=== PATIENT | male | born 1960 | race Caucasian/White ===

== ENCOUNTER 2016-04-05 21:05 | Emergency (ER) | payer OTHER ==
--- NOTE | 2016-04-05 21:51 | DIAGNOSTIC IMAGING REPORT ---
PROCEDURE: XR WRIST MIN 3 VIEWS - RIGHT INDICATION: CELLULITIS TECHNIQUE: Four views. COMPARISON: None. FINDINGS: There are faint dystrophic calcifications in the soft tissues surrounding the right wrist with probable chondrocalcinosis. Osseous structures and joint spaces are normal. No evidence of fracture. If an occult scaphoid fracture suspected clinically, follow-up examination) 14 days may be of assistance. IMPRESSION: 1. Faint dystrophic calcifications surrounding the right wrist with probable chondrocalcinosis. Consider calcium pyrophosphate deposition disease (e.g., pseudogout). Gout arthropathy might also be considered. 2. Otherwise negative right wrist.
--- NOTE | 2016-04-05 23:30 | ED NURSING NOTES ---
Clinical Report - Nurses [facility] [place] [address] 04/05/2016 21:08 Patient: RALPH SMITH TRIAGE Triage time 2115. Acuity: LEVEL 4. Chief Complaint: RIGHT UPPER EXTREMITY PAIN, SWELLING and REDNESS. Alert. --21:22 Nicole Farnsworth 21:18 04/05/16. BP: 163/89. HR: 105. RR: 18. O2 saturation: 98%. Temp: 99.2 F. Pain level now 8/10. --21:22 Nicole Farnsworth. Weight: 72.5 kg. Height/Length: 66 inches. BMI: 25.8. --21:17 Nicole Farnsworth. Medications Allopurinol Oral. --21:19 Nicole Farnsworth Colchicine Oral. --21:21 Nicole Farnsworth. Allergies No Known Drug Allergy. --21:19 Nicole Farnsworth. History Arrived by private vehicle. Historian: patient. Accompanied by family. An injury may have occurred. This occurred yesterday. 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 SOCIAL HX: Occasional alcohol use. --21:22 Nicole Farnsworth. PROBLEMS: Gout. Gout. --21:21 Nicole Farnsworth. Interventions To treatment room. --21:22 Nicole Farnsworth. PHYSICAL ASSESSMENT Ambulatory to room. GENERAL / NEURO / PSYCH: Appears in pain and in distress. EXTREMITIES: Limited ROM present. Right hand: tenderness, swelling and erythema. SKIN: Skin intact. Skin is warm and dry. --21:23 Nicole Farnsworth. NURSING PROGRESS NOTES 21:40 04/05/2016 Site #1 started via IV in the left antecubital space with an 20g angiocath, with aseptic technique and good blood return; one attempt. Blood drawn: rainbow set and cultures x1. Labeled in the presence of the patient and sent to the lab. Saline lock flushed with 10 mL saline. --21:40 Nicole Farnsworth 21:41 04/05/2016 Toradol IVP 30 mg given. via site #1. Allergies verified and confirmed 5 rights. IV patency established. IV site checked: no pain, redness, or swelling. IV flushed thoroughly pre- and post-medication administration. IVP given by RN. --21:41 Nicole Farnsworth 21:41 04/05/2016 Started bag #1 1000 mL IV Fluids IV NS (Saline); bolus of 1000 mL wide open via site #1. Allergies verified and confirmed 5 rights. IV patency established. IV site checked: no pain, redness, or swelling. IV flushed thoroughly pre- and post-medication administration. --21:41 Nicole Farnsworth 23:40 04/05/2016 Started 900 mg of Clindamycin IVPB in bag #1 50 mL; at 100 mL/hr over 30 minute(s) via site #1; Allergies verified and confirmed 5 rights. IV patency established. IV site checked: no pain, redness, or swelling. IV flushed thoroughly pre- and post-medication administration. --23:40 Nicole Farnsworth 00:14 04/06/2016 IV Fluids IV NS Discontinued: bag #1 infused upon discharge. Total amount infused: 1000 mL. IV patency established. IV site checked: no pain, redness, or swelling. IV flushed thoroughly. --00:14 Nicole Farnsworth 00:15 04/06/2016 Clindamycin IVPB Discontinued: bag #1 infused upon discharge. Total amount infused: 50 mL. IV patency established. IV site checked: no pain, redness, or swelling. IV flushed thoroughly. --00:15 Nicole Farnsworth Reassessment after medication administered. He is calm and resting quietly and has had no adverse reaction. Overall patient status is improved- he states feels better. --00:15 Nicole Farnsworth. DISPOSITION / DISCHARGE Departure time: 9. Condition at departure: improved and stable. No learning barriers present. Discharge instructions provided and reviewed with the patient. Reviewed medication(s). Patient verbalized understanding. Written instructions provided in Swedish. The patient was discharged by the physician assistant professor of physics. He was discharged home and accompanied by family. He left the Emergency Department ambulatory and via private vehicle. Family member driving. --00:16 Nicole Farnsworth 00:15 04/06/16. BP: 158/72. HR: 88. RR: 16. O2 saturation: 98%. Pain level now 06/22. --00:16 Nicole Farnsworth. Locked/Released at 04/06/2016 0:17 by Nicole Farnsworth,
--- NOTE | 2016-04-05 23:30 | ED ORDER SUMMARY ---
..... Patient: RALPH SMITH OrderSheet [facility] VisitID: [id number] [place] [address] 55y, M Registration Date/Time: 04/05/2016 ORDER SHEET Weight: 72.5 kg Allergies: No Known Drug Allergy GENERAL ORDERS: Hand 3 or 4V Right Urgent (:04/05/2016 EKoroleva P.A.-C) (Ack 21:25 [facility] Medical Staff Director) Blood Culture (No) (N/A) Urgent (:04/05/2016 EKoroleva P.A.-C) (Ack 21:25 [facility] Medical Staff Director) Wrist 3 or 4V Right Urgent (:04/05/2016 EKoroleva P.A.-C) (Ack 21:25 [facility] Medical Staff Director) (21:31 Berry) CBC w Diff Urgent (:04/05/2016 EKoroleva P.A.-C) (Ack 21:25 [facility] Medical Staff Director) BMP Urgent (:04/05/2016 EKoroleva P.A.-C) (Ack 21:25 [facility] Medical Staff Director) Uric Acid Urgent (:04/05/2016 EKoroleva P.A.-C) (Ack 21:25 [facility] Medical Staff Director) PCT (Procalcitonin) Urgent (:04/05/2016 EKoroleva P.A.-C) (Ack 21:25 [facility] Medical Staff Director) Lactate, Serum Urgent (:04/05/2016 EKoroleva P.A.-C) (Ack 21:25 [facility] Medical Staff Director) Sed Rate Urgent (:04/05/2016 EKoroleva P.A.-C) (Ack 21:25 [facility] Medical Staff Director) CRP Urgent (:04/05/2016 EKoroleva P.A.-C) (Ack 21:25 [facility] Medical Staff Director) MEDICATION ORDERS: IV FLUIDS: IV NS : initial bolus 1000 mL (1000 mL/hr), then 10 mL/hr for X1 (NOW); Travis (21:04/05/2016 EKoroleva P.A.-C) (21:[facility] Toradol IV 30 mg (NOW) (21:04/05/2016 EKoroleva P.A.-C) (21:41 [facility]) Clindamycin IV 900 mg/50mL (NOW) (23:23 04/05/2016 EKoroleva P.A.-C) (23:40 [facility]) ORDER SHEET NOTES: [Electronically signed by Nicole Farnsworth (00:17 04/06/2016)] [Electronically signed by Mague JamesASayra-C (13:47 04/06/2016)] [Electronically locked/signed by Nicole Farnsworth (00:17 04/06/2016)]
--- NOTE | 2016-04-05 23:30 | ED ORDER SUMMARY ---
..... Patient: RALPH SMITH OrderSheet [facility] VisitID: [id number] [place] [address] 55y, M Registration Date/Time: 04/05/2016 ORDER SHEET Weight: 72.5 kg Allergies: No Known Drug Allergy GENERAL ORDERS: Hand 3 or 4V Right Urgent (:04/05/2016 EKoroleva P.A.-C) (Ack 21:25 [facility] Rubber Roller Grinder Operator) Blood Culture (No) (N/A) Urgent (:04/05/2016 EKoroleva P.A.-C) (Ack 21:25 [facility] Rubber Roller Grinder Operator) Wrist 3 or 4V Right Urgent (:04/05/2016 EKoroleva P.A.-C) (Ack 21:25 [facility] Rubber Roller Grinder Operator) (21:31 Berry) CBC w Diff Urgent (:04/05/2016 EKoroleva P.A.-C) (Ack 21:25 [facility] Rubber Roller Grinder Operator) BMP Urgent (:04/05/2016 EKoroleva P.A.-C) (Ack 21:25 [facility] Rub[facility] Roller Grinder Operator) Uric Acid Urgent (:04/05/2016 EKoroleva P.A.-C) (Ack 21:25 [facility] Rubber Roller Grinder Operator) PCT (Procalcitonin) Urgent (:04/05/2016 EKoroleva P.A.-C) (Ack 21:25 [facility] Rubber Roller Grinder Operator) Lactate, Serum Urgent (:04/05/2016 EKoroleva P.A.-C) (Ack 21:25 [facility] Rubber Roller Grinder Operator) Sed Rate Urgent (:04/05/2016 EKoroleva P.A.-C) (Ack 21:25 [facility] Rubber Roller Grinder Operator) CRP Urgent (:04/05/2016 EKoroleva P.A.-C) (Ack 21:25 [facility] Rubber Roller Grinder Operator) MEDICATION ORDERS: IV FLUIDS: IV NS : initial bolus 1000 mL (1000 mL/hr), then 10 mL/hr for X1 (NOW); Travis (21:04/05/2016 [facility] P.A.-C) ([facility] Toradol IV 30 mg (NOW) (21:04/05/2016 EKoroleva P.A.-C) (21:41 [facility]) Clindamycin IV 900 mg/50mL (NOW) (23:23 04/05/2016 EKoroleva P.A.-C) (23:40 [facility]) ORDER SHEET NOTES: [Electronically signed by Nicole Farnsworth (00:17 04/06/2016)] [Electronically signed by Mague JamesASayra-C (13:47 04/06/2016)] [Electronically locked/signed by Nicole Farnsworth (00:17 04/06/2016)]
--- NOTE | 2016-04-05 23:30 | ED NURSING NOTES ---
Clinical Report - Nurses [facility] [place] [address] 04/05/2016 21:08 Patient: RALPH SMITH TRIAGE Triage time 2115. Acuity: LEVEL 4. Chief Complaint: RIGHT UPPER EXTREMITY PAIN, SWELLING and REDNESS. Alert. --21:22 Nicole Farnsworth 21:18 04/05/16. BP: 163/89. HR: 105. RR: 18. O2 saturation: 98%. Temp: 99.2 F. Pain level now 8/10. --21:22 Nicole Farnsworth. Weight: 72.5 kg. Height/Length: 66 inches. BMI: 25.8. --21:17 Nicole Farnsworth. Medications Allopurinol Oral. --21:19 Nicole Farnsworth Colchicine Oral. --21:21 Nicole Farnsworth. Allergies No Known Drug Allergy. --21:19 Nicole Farnsworth. History Arrived by private vehicle. Historian: patient. Accompanied by family. An injury may have occurred. This occurred yesterday. 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 SOCIAL HX: Occasional alcohol use. --21:22 Nicole Farnsworth. PROBLEMS: Gout. Gout. --21:21 Nicole Farnsworth. Interventions To treatment room. --21:22 Nicole Farnsworth. PHYSICAL ASSESSMENT Ambulatory to room. GENERAL / NEURO / PSYCH: Appears in pain and in distress. EXTREMITIES: Limited ROM present. Right hand: tenderness, swelling and erythema. SKIN: Skin intact. Skin is warm and dry. --21:23 Nicole Farnsworth. NURSING PROGRESS NOTES 21:40 04/05/2016 Site #1 started via IV in the left antecubital space with an 20g angiocath, with aseptic technique and good blood return; one attempt. Blood drawn: rainbow set and cultures x1. Labeled in the presence of the patient and sent to the lab. Saline lock flushed with 10 mL saline. --21:40 Nicole Farnsworth 21:41 04/05/2016 Toradol IVP 30 mg given. via site #1. Allergies verified and confirmed 5 rights. IV patency established. IV site checked: no pain, redness, or swelling. IV flushed thoroughly pre- and post-medication administration. IVP given by RN. --21:41 Nicole Farnsworth 21:41 04/05/2016 Started bag #1 1000 mL IV Fluids IV NS (Saline); bolus of 1000 mL wide open via site #1. Allergies verified and confirmed 5 rights. IV patency established. IV site checked: no pain, redness, or swelling. IV flushed thoroughly pre- and post-medication administration. --21:41 Nicole Farnsworth 23:40 04/05/2016 Started 900 mg of Clindamycin IVPB in bag #1 50 mL; at 100 mL/hr over 30 minute(s) via site #1; Allergies verified and confirmed 5 rights. IV patency established. IV site checked: no pain, redness, or swelling. IV flushed thoroughly pre- and post-medication administration. --23:40 Nicole Farnsworth 00:14 04/06/2016 IV Fluids IV NS Discontinued: bag #1 infused upon discharge. Total amount infused: 1000 mL. IV patency established. IV site checked: no pain, redness, or swelling. IV flushed thoroughly. --00:14 Nicole Farnsworth 00:15 04/06/2016 Clindamycin IVPB Discontinued: bag #1 infused upon discharge. Total amount infused: 50 mL. IV patency established. IV site checked: no pain, redness, or swelling. IV flushed thoroughly. --00:15 Nicole Farnsworth Reassessment after medication administered. He is calm and resting quietly and has had no adverse reaction. Overall patient status is improved- he states feels better. --00:15 Nicole Farnsworth. DISPOSITION / DISCHARGE Departure time: 9. Condition at departure: improved and stable. No learning barriers present. Discharge instructions provided and reviewed with the patient. Reviewed medication(s). Patient verbalized understanding. Written instructions provided in Ukrainian. The patient was discharged by the physician visual merchandising assistant. He was discharged home and accompanied by family. He left the Emergency Department ambulatory and via private vehicle. Family member driving. --00:16 Nicole Farnsworth 00:15 04/06/16. BP: 158/72. HR: 88. RR: 16. O2 saturation: 98%. Pain level now 06/22. --00:16 Nicole Farnsworth. Locked/Released at 04/06/2016 0:17 by Nicole Farnsworth,
--- NOTE | 2016-04-05 23:30 | ED CLINICAL REPORT ---
Clinical Report - Physicians/Mid Levels [facility] [address] [place] [address] 04/05/2016 21:08 Patient: RALPH SMITH Time Seen: 21:29 Apr 05 2016. Arrived- By private vehicle. Historian- patient. HISTORY OF PRESENT ILLNESS Chief Complaint: Injury to the right and left hand. The injury happened 4 days. ( patient reports on the using scissors sensibly, with his right hand, and consequently on the starting to develop pain to his right hand, reports he thought he may have overdone it, subsequently around the and into 04 April developed pain, swelling, swelling does improve with ice, however now has also developed erythema. Denies fevers. Denies any direct trauma. Patient with history of gout, however such usually effects the area of his wrist on the ulnar aspect, near hisfifth digit. Has been taking his colchicine, his gout medications, has not missed doses. No increased use of seafood or alcohol.). REVIEW OF SYSTEMS All systems otherwise negative, except as recorded above. PAST HISTORY The patient's dominant hand is the right. He has not had a prior injury to the same area. Tetanus immunization status is up-to-date. ADDITIONAL NOTES The nursing notes have been reviewed. PHYSICAL EXAM Vital Signs: 04/05/2016 21:18 BP: 163/89. HR: 105. RR: 18. O2 saturation: 98%. Temp: 99.2 F. Appearance: Alert. No acute distress. Head: Head atraumatic. ENT: Ears normal. Neck: Normal inspection. Neck supple. C-spine non-tender. CVS: Normal heart rate and rhythm. Heart sounds normal. Respiratory: No respiratory distress. Breath sounds normal. Skin: Skin warm. Skin intact. (erythema). Extremities: Dorsal right hand: erythema (Erythema starting at the proximal thumb extending into the radial dorsal wrist extending into the forearmmid and distal. With pain upon extension, however ability to fully extend and extend under tension. Cap refill less than 3 seconds. Tender and warmth present on the area. An S intact distally.). Neuro, Vascular and Tendons: Vascular status intact. Motor intact. LABS, X-RAYS, AND EKG Rt UE Digits X-ray: (IMPRESSION: 1. Faint dystrophic calcifications surrounding the right wrist with probable chondrocalcinosis. Consider calcium pyrophosphate deposition disease (e.g., pseudogout). Gout arthropathy might also be considered. 2. Otherwise negative right wrist. Electronically Final signed by:Skip Pathak MD 04/05/2016 9:49:11 PM). Laboratory Tests: CBC w Diff: (JOHN: 04/05/2016 21:35) ( MsgRcvd 04/05/2016 23:18) Final results Test Result Flag Units (Reference) WHITE BLOOD COUNT 7.3 K/uL (4.5-11.5) RED BLOOD COUNT 4.78 M/uL (4.50-5.90) HEMOGLOBIN 14.7 gm/dL (13.5-17.5) HEMATOCRIT 43.4 % (41.0-53.0) MEAN CELL VOLUME 91 fL (80-100) MEAN CORPUSCULAR HGB 31 pg (26-34) MEAN CORPUSCULAR HGB CONC 34 g/dL (31-37) RED CELL DISTRIBUTION WIDTH 12.9 % (11.6-14.8) PLATELET COUNT 199 K/uL (150-400) NEUTROPHIL % 70.5 % (50-75) LYMPH % 21.1 L % (25-40) MONO % 5.9 % (3-14) EOSINOPHIL % 2.0 % (0-4) BASOPHIL % 0.5 % (0-2) SED RATE WESTERGREN 39 H mm/hr (0-20) Lactate, Serum: (JOHN: 04/05/2016 22:05) ( MsgRcvd 04/05/2016 23:29) Final results Test Result Flag Units (Reference) LACTIC ACID 1.8 mmol/L (0.4-2.0) [id number]: (JOHN: 04/05/2016 21:35) ( MsgRcvd 04/05/2016 23:45) Final results Test Result Flag Units (Reference) PROCALCITONIN <0.5 ng/mL (0-0.5) PCT Concentration: Interpretation : Risk/option for action PCT <=0.5 ng/mL : Systemic : Low risk forinfection(sepsis): progression to severeis not likely. : systemic infection.Local bacterial : CAUTION-PCT levelsinfection is : below 0.5 ng/mL do notpossible. : exclude an infection,because localizedinfections (withoutsystemic signs) may beassociated with suchlow levels. If PCT ismeasured very earlyafter a bacterialchallenge (usually <6hours), these valuesmay still be low. Inthis case PCT shouldbe re-assessed 6-24hours later. PCT >0.5 and : Systemic infection: Moderate risk for<= 2 ng/mL : (sepsis) is : progression to severepossible, but : systemic infection.other conditions : The patient should beare known to : closely monitoredelevate PCT. : both clinically andby re-assessing PCTwithin 6-24 hours. PCT > 2 ng/mL : Systemic infection: High risk for(sepsis) is likely: progression to severeunless other : systemic infection.causes are known. : PCT >= 10 ng/mL : Important systemic: High likelihood ofinflammatory : severe sepsis orresponse, almost : septic shock.exclusively due to:severe bacterial :sepsis or septic :shock. : BMP: (JOHN: 04/05/2016 21:35) ( MsgRcvd 04/05/2016 23:06) Final results Test Result Flag Units (Reference) GLUCOSE 142 H mg/dL (70-110) BUN 12 mg/dL (7-18) CREATININE 0.9 mg/dL (0.6-1.3) Estimated GFR >60 mL/min Estimated GFR- >60 mL/min Note: Persistent reduction over 3 months in eGFR<60 mL/min/1.73 m2 defines CKD. Patients with eGFR values>=60 mL/min/1.73 m2 may also have CKD if evidence ofpersistent proteinuria. Additional information may be foundat www.kidney.org. SODIUM 140 mmol/L (136-145) POTASSIUM 3.9 mmol/L (3.5-5.1) CHLORIDE 103 mmol/L (98-107) CARBON DIOXIDE 28 mmol/L (21-32) CALCIUM 8.7 mg/dL (8.5-10.1) URIC ACID 4.8 mg/dL (2.6-7.2) C-REACTIVE PROTEIN 4.1 H mg/dL (0.0-0.9) . PROGRESS AND PROCEDURES Course of Care: patient was full range of motion, dorsal swelling, erythema into the wrist. Full range of motion of the thumb. No signs of any inoculation site such as an abscess. Differential is broad including pseudogout, gout arthritis and acute inflammatory, as well as cellulitis. Labs are as above, with no elevation in leukocytosis, no left shift. X-ray without any signs concerning for osteomyelitis. No obvious lymphangitic streaking into his forearm and elbow. Low-grade temperature 99.2 recorded here in the ER. Pt case is evaluated and discussed with Dr. Villafuerte in the ER, who agrees with treatment plan. Patient with strict return precautions, and to follow-up with his primary care doctor at the [facility] over the next 48 hours. 04/06/2016 00:15 BP: 158/72. HR: 88. RR: 16. O2 saturation: 98%. Patient is stable. Physical exam findings are improved. Symptoms better. Patient/family counseled. Differential Diagnosis: I considered contact dermatitis, atopic dermatitis, chronic eczema, bacterial infection, folliculitis, furunculosis, fungal infection, viral etiology, type 1 hypersensitivity, drug eruption, chemical exposure and psoriasis as a possible cause of rash in this patient. This is a partial list of diagnoses considered. Disposition: Discharged. CLINICAL IMPRESSION Hypertension. Acute arthritis of the right wrist due to gout. Cellulitis of the right wrist. INSTRUCTIONS Apply ice. Elevate affected areas above chest level. Limit use of your hand. Do not work for three days. Prescription Medications: Hydrocodone/APAP 5mg / 325mg: take 1 orally every 6 hours as needed for pain. Dispense fifteen (15). No refill. Cleocin 300 mg: take 1 capsule orally every 8 hours for 10 days. No refill. Substitution is permissible. Indomethacin 25 mg capsules: Take 1 capsule orally every 8 hours as needed. Dispense twenty (20). No refills. Follow-up: Follow up with your doctor Wednesday in two days. (Electronically signed by Mague James P.A.-C 04/06/2016 13:47)
--- NOTE | 2016-04-06 13:48 | ED MED RECONCILIATION SUMMARY ---
Patient: RALPH SMITH Medication Reconciliation Report [facility] VisitID: [id number] [address] [place] [address] 55y, M Registration Date/Time: 04/05/2016 Weight: 72.5 kg Height/Length: 66 in. BMI: 25.8 ALLERGIES: No Known Drug Allergy The patient's Home Medications are listed below: THE FOLLOWING MEDICATIONS NEED TO BE RECONCILED: Allopurinol Oral Colchicine Oral The source(s) of the original Home Medication information: Not obtained. The following Medications were given to the patient in the Emergency Department: Toradol [IVP] IVP 30 mg, administered: 04/05/2016 9:41:00 PM IV NS IV Fluids bolus 1000 mL wide open, administered: 04/05/2016 9:41:00 PM Clindamycin [IVPB] IVPB bolus 0, then 900 mg 100 mL/hr, administered: 04/05/2016 11:40:00 PM The following Medications were prescribed to the patient: Hydrocodone/APAP 5mg / 325mg: take 1 orally every 6 hours as needed for pain. Dispense fifteen (15). No refill. -- Mague James, P.A.-C Cleocin 300 mg: take 1 capsule orally every 8 hours for 10 days. No refill. Substitution is permissible. -- Mague James, P.A.-C Indomethacin 25 mg capsules: Take 1 capsule orally every 8 hours as needed. Dispense twenty (20). No refills. -- Mague James, P.A.-C
--- NOTE | 2016-04-06 13:48 | ED MED RECONCILIATION SUMMARY ---
Patient: RALPH SMITH Medication Reconciliation Report [facility] VisitID: [id number] [address] [place] [address] 55y, M Registration Date/Time: 04/05/2016 Weight: 72.5 kg Height/Length: 66 in. BMI: 25.8 ALLERGIES: No Known Drug Allergy The patient's Home Medications are listed below: THE FOLLOWING MEDICATIONS NEED TO BE RECONCILED: Allopurinol Oral Colchicine Oral The source(s) of the original Home Medication information: Not obtained. The following Medications were given to the patient in the Emergency Department: Toradol [IVP] IVP 30 mg, administered: 04/05/2016 9:41:00 PM IV NS IV Fluids bolus 1000 mL wide open, administered: 04/05/2016 9:41:00 PM Clindamycin [IVPB] IVPB bolus 0, then 900 mg 100 mL/hr, administered: 04/05/2016 11:40:00 PM The following Medications were prescribed to the patient: Hydrocodone/APAP 5mg / 325mg: take 1 orally every 6 hours as needed for pain. Dispense fifteen (15). No refill. -- Mague James, P.A.-C Cleocin 300 mg: take 1 capsule orally every 8 hours for 10 days. No refill. Substitution is permissible. -- Mague James, P.A.-C Indomethacin 25 mg capsules: Take 1 capsule orally every 8 hours as needed. Dispense twenty (20). No refills. -- Mague James, P.A.-C
--- NOTE | 2016-04-06 13:48 | ED DISCHARGE INSTRUCTIONS ---
Patient: RALPH SMITH General Instructions [facility] VisitID: [id number] [place] [address] 55y, M Registration Date/Time: 04/05/2016 Hypertension. Acute arthritis of the right wrist due to gout. Cellulitis of the right wrist. INSTRUCTIONS Apply ice. Elevate affected areas above chest level. Limit use of your hand. Do not work for three days. Prescription Medications: Hydrocodone/APAP 5mg / 325mg: take 1 orally every 6 hours as needed for pain. Dispense fifteen (15). No refill. Cleocin 300 mg: take 1 capsule orally every 8 hours for 10 days. No refill. Substitution is permissible. Indomethacin 25 mg capsules: Take 1 capsule orally every 8 hours as needed. Dispense twenty (20). No refills. Follow-up: Follow up with your doctor Wednesday in two days. ADDITIONAL INFORMATION Arthralgia Arthralgia is the term for pain in or around the joint. It is not a disease but a symptom. This may involve one or more joints. Sometimes arthralgias move from joint to joint. There are many causes for joint pain. These include: Injury Osteoarthritis (from wearing out of the joint surface) Rheumatoid arthritis (an autoimmune disease) Gout (inflammation of the joint due to crystals in the joint fluid) Infection inside the joint Bursitis (inflammation of the fluid-filled sacs around the joint) Lupus and other collagen-vascular disease Home Care: Rest the involved joint(s) until your symptoms improve. You may use acetaminophen (Tylenol) or ibuprofen (Motrin, Advil) to control pain, unless another pain medicine was prescribed. [NOTE: If you have chronic liver or kidney disease or ever had a stomach ulcer or GI bleeding, talk with your doctor before using these medicines.] Follow Up with your doctor or as advised by our staff. [NOTE: If you had an X-ray it will be reviewed by a specialist. You will be notified of any new findings that may affect your care.] Return Promptly or contact your doctor if any of the following occurs: Pain increases Pain moves to other joints New rash appears Fever of 100.4F (38C) or higher, or as directed by your healthcare provider Cellulitis You have an infection of the skin known as cellulitis. This usually starts with a scrape, cut, insect bite, blister or other opening in the skin which becomes infected. This is a serious condition. It must be watched closely to be sure the infection is not spreading. With antibiotic treatment, the size of the red area will gradually shrink in size until the skin returns to normal. This will take 7-10 days. The red area should never increase in size once the antibiotic medicine has been started. Occasionally, an infection will be resistant to one antibiotic and another one will have to be used. Home Care: 1) Limit the use of the affected part, since excess movement can cause the infection to spread. 2) If the infection is on your leg, walk as little as possible during the first few days of the treatment. Keep your leg elevated while sitting. This will reduce swelling. 3) Take all of the antibiotic medicine exactly as directed until it is gone. Be careful not to miss any doses, especially during the first seven days. Follow Up with your doctor or this facility as directed. Check the infected area daily for the warning signs listed below. Get Prompt Medical Attention if any of the following occur: -- Spreading area of redness -- Increasing swelling or pain -- Appearance of pus or drainage -- Fever over 100.4 F (38.0 C) oral, or over 101.4 F (38.6 C) rectal, after two days on antibiotics Hydrocodone Bitartrate, Acetaminophen Oral tablet What is this medicine? ACETAMINOPHEN; HYDROCODONE (a set a NAGA cordelia fen; esme droe KOE done) is a pain reliever. It is used to treat mild to moderate pain. How should I use this medicine? Take this medicine by mouth. Swallow it with a full glass of water. Follow the directions on the prescription label. If the medicine upsets your stomach, take the medicine with food or milk. Do not take more than you are told to take. Talk to your newspaper writer regarding the use of this medicine in children. This medicine is not approved for use in children. What side effects may I notice from receiving this medicine? Side effects that you should report to your doctor or health professional healthcare representative as soon as possible: allergic reactions like skin rash, itching or hives, swelling of the face, lips, or tongue breathing problems confusion feeling faint or lightheaded, falls stomach pain yellowing of the eyes or skin Side effects that usually do not require medical attention (report to your doctor or health professional healthcare representative if they continue or are bothersome): nausea, vomiting stomach upset What may interact with this medicine? alcohol antihistamines isoniazid medicines for depression, anxiety, or psychotic disturbances medicines for sleep muscle relaxants naltrexone narcotic medicines (opiates) for pain phenobarbital ritonavir tramadol What if I miss a dose? If you miss a dose, take it as soon as you can. If it is almost time for your next dose, take only that dose. Do not take double or extra doses. Where should I keep my medicine? Keep out of the reach of children. This medicine can be abused. Keep your medicine in a safe place to protect it from theft. Do not share this medicine with anyone. Selling or giving away this medicine is dangerous and against the law. Store at room temperature between 15 and 30 degrees C (59 and 86 degrees F). Protect from light. Keep container tightly closed. Throw away any unused medicine after the expiration date. Discard unused medicine and used packaging carefully. Pets and children can be harmed if they find used or lost packages. What should I tell my health care provider before I take this medicine? They need to know if you have any of these conditions: brain tumor Crohn's disease, inflammatory bowel disease, or ulcerative colitis drink more than 3 alcohol-containing drinks per day drug abuse or addiction head injury heart or circulation problems kidney disease or problems going to the bathroom liver disease lung disease, asthma, or breathing problems an unusual or allergic reaction to acetaminophen, hydrocodone, other opioid analgesics, other medicines, foods, dyes, or preservatives or trying to get breast-feeding What should I watch for while using this medicine? Tell your doctor or health professional healthcare representative if your pain does not go away, if it gets worse, or if you have new or a different type of pain. You may develop tolerance to the medicine. Tolerance means that you will need a higher dose of the medicine for pain relief. Tolerance is normal and is expected if you take the medicine for a long time. Do not suddenly stop taking your medicine because you may develop a severe reaction. Your body becomes used to the medicine. This does NOT mean you are addicted. Addiction is a behavior related to getting and using a drug for a non-medical reason. If you have pain, you have a medical reason to take pain medicine. Your doctor will tell you how much medicine to take. If your doctor wants you to stop the medicine, the dose will be slowly lowered over time to avoid any side effects. You may get drowsy or dizzy when you first start taking the medicine or change doses. Do not drive, use machinery, or do anything that may be dangerous until you know how the medicine affects you. Stand or sit up slowly. There are different types of narcotic medicines (opiates) for pain. If you take more than one type at the same time, you may have more side effects. Give your health care provider a list of all medicines you use. Your doctor will tell you how much medicine to take. Do not take more medicine than directed. Call emergency for help if you have problems breathing. The medicine will cause constipation. Try to have a bowel movement at least every 2 to 3 days. If you do not have a bowel movement for 3 days, call your doctor or health professional healthcare representative. Too much acetaminophen can be very dangerous. Do not take Tylenol (acetaminophen) or medicines that contain acetaminophen with this medicine. Many non-prescription medicines contain acetaminophen. Always read the labels carefully. You have been given the following additional information: Arthralgia Cellulitis Hydrocodone Bitartrate, Acetaminophen Oral tablet Limit use of your hand. Do not work for three days. (Electronically signed by Mague James P.A.-C 04/06/2016 13:47)
--- NOTE | 2016-04-06 13:48 | ED MAR SUMMARY ---
..... Medication Administration Record Located Within [facility] [address] [place] [address] Patient: RALPH SMITH Visit ID: [id number] 55y, M Weight: 72.5 kg Height/Length: 66 in BMI: 25.8 ALLERGIES: No Known Drug Allergy Start 21:41 04/05/2016 Nicole Farnsworth,, Stop 00:14 04/06/2016 Nicole Farnsworth, Medication Administered: IV NS (SALINE), Dose: IV Fluids, Bolus: 1000 mL wide open, Dispensed: 1000 mL bag, Site: #1 left AC. Medication Ordered: IV NS : initial bolus 1000 mL (1000 mL/hr), then 10 mL/hr for X1 (NOW); Travis. Given 21:41 04/05/2016 Nicole Farnsworth, Medication Administered: TORADOL [IVP], Dose: 30 mg IVP, Site: #1 left AC. Medication Ordered: Toradol IV 30 mg (NOW). Start 23:40 04/05/2016 Nicole Farnsworth,, Stop 00:15 04/06/2016 Nicole Farnsworth, Medication Administered: CLINDAMYCIN [IVPB], Dose: 900 mg IVPB over 30 minute(s), Rate: 100 mL/hr, Dispensed: 50 mL bag, Site: #1 left AC. Medication Ordered: Clindamycin IV 900 mg/50mL (NOW).
--- NOTE | 2016-04-06 13:48 | ED MAR SUMMARY ---
..... Medication Administration Record [facility] [address] [place] [address] Patient: RALPH SMITH Visit ID: [id number] 55y, M Weight: 72.5 kg Height/Length: 66 in BMI: 25.8 ALLERGIES: No Known Drug Allergy Start 21:41 04/05/2016 Nicole Farnsworth,, Stop 00:14 04/06/2016 Nicole Farnsworth, Medication Administered: IV NS (SALINE), Dose: IV Fluids, Bolus: 1000 mL wide open, Dispensed: 1000 mL bag, Site: #1 left AC. Medication Ordered: IV NS : initial bolus 1000 mL (1000 mL/hr), then 10 mL/hr for X1 (NOW); Travis. Given 21:41 04/05/2016 Nicole Farnsworth, Medication Administered: TORADOL [IVP], Dose: 30 mg IVP, Site: #1 left AC. Medication Ordered: Toradol IV 30 mg (NOW). Start 23:40 04/05/2016 Nicole Farnsworth,, Stop 00:15 04/06/2016 Nicole Farnsworth, Medication Administered: CLINDAMYCIN [IVPB], Dose: 900 mg IVPB over 30 minute(s), Rate: 100 mL/hr, Dispensed: 50 mL bag, Site: #1 left AC. Medication Ordered: Clindamycin IV 900 mg/50mL (NOW).
== END 2016-04-06 00:10 | disposition home or self-care (01) ==
LOC: ED SRH 21:05
DX: M10.9 Gout, unspecified (principal); M14.83 Arthropathies in other specified diseases classified elsewhere, wrist; L03.113 Cellulitis of right upper limb; I10 Essential (primary) hypertension